=== PATIENT | female | born 1955 | race Two or more races ===

== ENCOUNTER 2020-03-05 14:47 | Emergency (ER) | payer BC, OTHER ==
[~2020-03-05] VITALS: Ht 165.1 cm; Wt 68.0 kg
[~2020-03-05 14:47] MED LIST: ALPR1TAB7; BENAZEP/HCTZ; CARI350T22; DIPHTAB95; DULO60CA; ESTR2TAB; HYDROCODONE ACETAMINOPHEN; IBUP800T24; LEVO175T31; LORA5TAB; QUET100T38; SENN25TA9; SIMV-13; [UNRECOGNIZED DRUG - CODE]
[2020-03-05 15:29] LABS: Albumin 2.8 g/dL (3.4-5.0); Basophils # (auto) 0 10 ^3/uL (0-0.2); Basophils % (auto) 0.6 % (0.0-2.0); Calcium 7.6 mg/dL (8.5-10.1); Eosinophils # (auto) 0 10 ^3/uL (0-0.8); Eosinophils % (auto) 0.7 % (0.0-7.0); Hematocrit 39.6 % (36.0-46.0); Hemoglobin 13.1 g/dL (12.2-16.2); Lymphocytes # (auto) 1.9 10 ^3/uL (0.4-5.4); Mean Corpuscular Hemoglobin 32.2 pg (28.0-32.0); Mean Corpuscular Hgb Conc. 33.1 g/dL (32.0-36.0); Mean Corpuscular Volume 97.3 fL (80.0-100.0); Monocytes # (auto) 0.3 10 ^3/uL (0-1.3); Monocytes % (auto) 6.2 % (0.0-12.0); Neutrophils # (auto) 2.2 10 ^3/uL (1.6-8.6); Neutrophils % (auto) 49.5 % (37.0-80.0); Nucleated Red Blood Cells % 0.1 %; Platelet Count (auto) 215 10^3/uL (140-450); Potassium 3.7 mmol/L (3.5-5.1); Red Blood Cells 4.07 10^6/uL (4.0-5.20); Red Cell Distribution Width 13.2 % (11.8-14.3); White Blood Cell 4.5 10^3/uL (4.4-10.8)
[2020-03-05 15:30] LABS: Salicylate < 1.7 mg/dL (2.8-20.0)
[2020-03-05 15:31] LABS: Acetaminophen < 2.0 ug/mL (10-30)
[2020-03-05 15:32] LABS: BUN/Creatinine Ratio 14.8
[2020-03-05 15:33] LABS: Bilirubin, Total 0.3 mg/dL (0.2-1.0); Total Protein 6.8 g/dL (6.4-8.2)
[2020-03-05] MEDS ORDERED: HALOPERIDOL LACTATE 5 MG/ML INJ VIAL ONE (16:28)
[2020-03-05] MEDS ORDERED: LORazepam 2MG/ML-1ML VIAL ONE (16:28)
[2020-03-05] MEDS ORDERED: diphenhdrAMINE HCL 50 MG/1 ML VL ONE (16:28)
[2020-03-05] MEDS ORDERED: LORazepam 2MG/ML-1ML VIAL IM ONE (16:30)
[2020-03-05] MEDS ORDERED: diphenhdrAMINE HCL 50 MG/1 ML VL IM ONE (16:30)
[2020-03-05] MEDS ORDERED: HALOPERIDOL LACTATE 5 MG/ML INJ VIAL IM ONE (16:30)
[2020-03-05 16:37] LABS: Urine WBC None Seen /hpf (0 - 5)
[2020-03-05 16:51] LABS: Urine Bacteria NONE SEEN /hpf (None Seen); Urine Blood TRACE /uL (Negative); Urine Specific Gravity 1.003 (1.001-1.035)
[2020-03-05 16:59] LABS: Amphetamine Screen, Urine NEGATIVE (NEGATIVE); Barbiturate Scree,Urine NEGATIVE (NEGATIVE); Benzodiazephine Screen, Urine NEGATIVE (NEGATIVE); Cannabinoid Screen, Urine NEGATIVE (NEGATIVE); Cocaine Screen, Urine NEGATIVE (NEGATIVE); Opiate Scree,Urine NEGATIVE (NEGATIVE); Phencyclidine Screen, Urine NEGATIVE (NEGATIVE)
[2020-03-06 10:30] VITALS: BP 111/68
== END 2020-03-06 10:36 | disposition short-term general hospital (02) ==
LOC: ER 14:47 → EDBD 14:47 → ER 03-06 10:36
DX: R45.851 Suicidal ideations (principal); F32.9 Major depressive disorder, single episode, unspecified; F41.9 Anxiety disorder, unspecified; F10.10 Alcohol abuse, uncomplicated; I10 Essential (primary) hypertension; Z90.710 Acquired absence of both cervix and uterus
CPT/HCPCS: 36415; 80053; 80307; 80320; 80329; 81001; 85025; 93005; 96372; 99285; J1200; J1630; J2060